=== PATIENT | male | born 1945 | race Caucasian/White ===

== ENCOUNTER → 2016-04-18 | Outpatient (CLI) | payer OTHER ==
[~2016-04-18] VITALS: Ht 177.8 cm; Wt 136.1 kg
[~2016-04-18] MED LIST: ADULT LOW DOSE81 MG PO; ALEVE220 MG PO; ALTACE10 M1 PO; ALTACE10 MG PO; CARDURA4 MG PO; CENTRUM SILVER1 EAC1 PO; CENTRUM SILVER1 EAC2 PO; CIPROFLOXACIN500 M1 PO; CYCLOBENZAPRINE10 MG PO; DILTIAZEM 24HR240 M2 PO; ENDUR-ACIN500 MG PO; FISH OIL 1,001000 M2 PO; FLOMAX PO; GLIPIZIDE ER10 MG PO; GLUCOSAMINE SU500 MG PO; HUMALOG100 UNIT/1 SUBQ; HUMALOG100 UNIT/2 SUBQ; HYDROCHLOROTH12.5 M1 PO; HYDROCODONE-AP1 EAC6 PO; HYDROCODONE-APA1 TA1 PO; IRON325 PO; LANTUS SOL100 UNIT/1 SUBQ; LIPITOR 20 MG T20 M1 PO; METFORMIN 500500 MG PO; METFORMIN HCL500 MG PO; MOBIC15 MG PO; NAPROSYN375 MG PO; NORCO 5-325 TA1 EACH PO; POTASSIUM CITR15 MEQ PO; POTASSIUM CITRA5 ME1 PO; PROTONIX40 M2 PO; SIMVASTATIN40 MG PO; [UNRECOGNIZED DRUG - CODE] GT; [UNRECOGNIZED DRUG - OTHER] PO
--- NOTE | ~2016-04-18 | HPC ---
[facility] [place] [address] PAIN MANAGEMENT CONSULTATION Name: CHAI HUDSON Room #: REG [facility] Breann#: [id number] Admission: 04/18/16 Attend Phys: Priyank Mathew DO Discharge: Date of : 43 Report #: [id number] THIS REPORT FOR: //name// CC: Beka Mathew HISTORY OF PRESENT ILLNESS: The patient is a 70-year-old gentleman last seen in the pain clinic 02/28/2016, patient was given epidural injection at that time at L3-L4. He returns to the pain clinic today noting the injections have afforded good relief of radicular pain. He does have ongoing pain primarily in the low back, right side. He states he has had poor balance since he has had total knee arthroplasty sometime ago. He notes the sciatic symptoms have been significantly abated following his epidural injections. He had excellent relief about 4-5 weeks, the pain has begun to recur again; however, presently pain is more in the right SI area at present. He does have a followup appointment at some point in the future to see Dr. Pickering regarding consideration for a surgical decompression. Again, MRI from 07/30/2015 notes spinal stenosis at L3-L4. He had left greater than right neural foraminal narrowing and presenting more with right radicular symptoms. PHYSICAL EXAMINATION: GENERAL: Shows a 70-year-old gentleman, moderately overweight with a BMI of 43 kilograms per meter squared. VITAL SIGNS: Blood pressure is 146/77, pulse 88, respirations 14. Rises from chair using armrest, moderately antalgic gait, though tandem, he is short of breath with any activity. He has a fairly large pannus, again BMI is 43 kilograms per meter squared. MUSCULOSKELETAL: Right patellar reflex is absent, left is 1/4. Achilles reflexes are diminished. Positive straight leg raise on the right. Grossly tender over the right SI with positive Sandra test on the right. ASSESSMENT: Symptomatic sacroiliac joint dysfunction by clinical exam, history of lumbar radiculopathy, symptoms improved following epidural injections. RECOMMENDATION: We will seek authorization for right SI joint injection under fluoroscopy, refer patient record of therapy. <ELECTRONICALLY SIGNED> By: Priyank Mathew DO 04/21/16 1228 1556 0408 Priyank Mathew DO /nt
[2016-04-18 09:40] VITALS: BP 146/77
== END | disposition home or self-care (01) ==
LOC: PAIN 06:53
DX: M53.3 Sacrococcygeal disorders, not elsewhere classified (principal); M54.16 Radiculopathy, lumbar region

== ENCOUNTER → 2016-07-31 | Outpatient (CLI) | payer OTHER | LOC: RAD 10:31 | DX: M47.896 Other spondylosis, lumbar region (principal); M25.551 Pain in right hip ==

== ENCOUNTER → 2016-09-04 | Outpatient (CLI) | payer OTHER | LOC: MRI 09:06 | DX: M47.896 Other spondylosis, lumbar region (principal); M16.11 Unilateral primary osteoarthritis, right hip; M47.816 Spondylosis without myelopathy or radiculopathy, lumbar region; M48.06 Spinal stenosis, lumbar region; K57.30 Diverticulosis of large intestine without perforation or abscess without bleeding ==

== ENCOUNTER → 2016-11-14 | Outpatient (CLI) | payer OTHER ==
[~2016-11-14] VITALS: Ht 177.8 cm; Wt 132.5 kg
--- NOTE | ~2016-11-14 | HPC ---
[facility] [place] [address] PAIN MANAGEMENT CONSULTATION Name: CHAI HUDSON Room #: REG [facility] Crain#: [id number] Admission: 11/14/16 Attend Phys: Priyank Mathew, Discharge: Date of : 43 Report #: [id number] THIS REPORT FOR: //name// CC: Beka Mathew The patient is a pleasant 71-year-old gentleman who I last saw back in April with ongoing lumbar radiculopathy. The patient had had epidural injections with dwindling efficacy, was seen as a new consult in August 2015, epidural injection at that time (August, November and February 2016 had afforded good relief). Unfortunately, symptoms continued to be problematic and he ultimately proceeded to have back surgery with Dr. Jabari Pickering, had L4-L5 mini laminectomy and facetectomy on 06/08/2016. He returns to pain clinic today for prolonged visit, seen from 13:05 to 13:30, greater than 50% of this 25-minute visit was spent counseling the patient, reviewing therapeutic options and discussing intervention. The patient was actually referred back to our clinic from Dr. Pickering's office for consideration for epidural injection for ongoing right hip and leg pain. The patient had been referred to Dr. Walter Nuñez at [facility] who did not feel pain was coming from the right hip. The patient was self-rating the pain a 9-10 on a VAS in the right buttock, posterior thigh and somewhat into the groin. Pain noted to be exacerbated with standing, walking and bending. Gets some relief with rest, medication and ice. PHYSICAL EXAMINATION: Shows 71-year-old gentleman, moderately obese with a BMI of 41.9 kg/m2. Vital signs show modest hypertension of 181/89, pulse 87, respirations 16. Rises from chair using armrest, antalgic gait favoring the right leg. Lumbar flexion is modestly limited. Well-healed midline scar compatible with surgical history for May, lower extremity strength is slightly diminished on the left to hip flexion and lower extremity extension. Modestly positive straight leg raise on the right. Some point tenderness over the right low back, though no discrete trigger points are noted. Sandra test is equivocal. Gaenslen's is negative. There are no recent diagnostic studies available subsequent to the 06/08/2016 laminectomy. Again, pain is in her right L5 pattern. Does have subjective weakness and paresthesia in this distribution. Exhibits neurogenic claudication with ambulation greater than 5 minutes. ASSESSMENT: Symptomatic lumbar radiculopathy, status post decompressive laminectomy, component of lumbar spondylosis and sacroiliac joint dysfunction, the latter aspect is relatively quiescent at present. RECOMMENDATIONS: Agree with neurosurgeon's request. The patient may benefit from epidural injection under fluoroscopy. We will seek authorization for right and midline L5-S1 epidural injection. If this does not afford adequate relief, [address] [address] PAIN MANAGEMENT CONSULTATION Name: CHAI HUDSON Room #: REG DEBBIE Crain#: [id number] Admission: 11/14/16 Attend Phys: Priyank Mathew DO Discharge: Date of : 43 Report #: [id number] consider transforaminal epidural injection at L4-L5 and L5-S1. Thanks for allowing me to participate in the patient's care. We will seek authorization for lumbar epidural injection right and midline at L5-S1 for right L5 radicular pain pattern. <ELECTRONICALLY SIGNED> By: Priyank Mathew DO 11/17/16 1253 1333 2210 Priyank Mathew DO /nt
[2016-11-14 12:40] VITALS: BP 181/89
== END ==
LOC: PAIN 07:06
DX: M47.26 Other spondylosis with radiculopathy, lumbar region (principal); M53.3 Sacrococcygeal disorders, not elsewhere classified

== ENCOUNTER → 2016-11-27 | Outpatient (CLI) | payer OTHER ==
[~2016-11-27] VITALS: Ht 177.8 cm; Wt 135.1 kg
[~2016-11-27] MED LIST changes: +KEFLEX500 MG PO
--- NOTE | ~2016-11-27 | HPC ---
[address] [address] PAIN MANAGEMENT CONSULTATION Name: CHAI HUDSON Room #: REG [facility] Breann#: [id number] Admission: 11/27/16 Attend Phys: Priyank Mathew DO Discharge: Date of : 43 Report #: [id number] THIS REPORT FOR: //name// CC: Beka Mathew DATE OF SERVICE: 11/27/2016 The patient is a 71-year-old gentleman, prior seen in the pain clinic 11/14/2016 for symptomatic lumbar radiculopathy. He had had a decompressive (minimally invasive) laminectomy with facetectomy at L4-5 on 06/08/2016. Some ongoing radicular pain. We sought authorization for lumbar epidural injection today, right of midline L5-S1. If this does not afford adequate relief, we will request authorization for 2-level transforaminal epidural injection, right L4-5 and right L5-S1. ASSESSMENT: Symptomatic lumbar radiculopathy status post decompressive laminectomy. PROCEDURE: Lumbar epidural injection under fluoroscopy. PROCEDURE NOTE: After both written and informed consent to include risk of spinal cord damage, increased pain, weakness and dural puncture, the patient was taken to the fluoroscopy suite, placed in the prone position. After sterile prep and drape, a skin wheal with lidocaine was raised. A 22-gauge epidural Tuohy needle was inserted in the midline at L5-S1 with good loss to resistance. Negative aspiration for cerebrospinal fluid or blood was noted. Then 1 mL of Omnipaque under biplanar fluoroscopy showed good spread within the epidural space. This was followed with 80 mg of triamcinolone plus 1 mL of 1.5% preservative-free Xylocaine, 0.5 mL Xylocaine was then injected to flush the needle; it was removed. The patient was monitored for an appropriate period of time and discharged in good and stable condition. <ELECTRONICALLY SIGNED> By: Priyank Mathew DO 11/27/16 1326 1214 1250 Priyank Mathew DO /nt
[2016-11-27 09:36] VITALS: BP 164/92
== END | disposition home or self-care (01) ==
LOC: PAIN 06:59
DX: M54.16 Radiculopathy, lumbar region (principal); Z79.82 Long term (current) use of aspirin; Z79.899 Other long term (current) drug therapy; Z79.4 Long term (current) use of insulin; Z98.890 Other specified postprocedural states

== ENCOUNTER → 2017-02-20 | Outpatient (CLI) | payer OTHER ==
[~2017-02-20] VITALS: Ht 177.8 cm; Wt 128.4 kg
[~2017-02-20] MED LIST changes: +CEFUROXIME500 MG PO
--- NOTE | ~2017-02-20 | HPC ---
[facility] [place] [address] PAIN MANAGEMENT CONSULTATION Name: CHAI HUDSON Room #: REG [facility] Crain#: [id number] Admission: 02/20/17 Attend Phys: Priyank Mathew DO Discharge: Date of : 43 Report #: [id number] THIS REPORT FOR: //name// CC: Beka Mathew The patient is a 71-year-old gentleman being treated for lumbar radiculopathy status post decompressive laminectomy, requiring complex medication management and SI mediated pain. Last visit 02/05/2017, we sought authorization for epidural injection at L5-S1 and talked about a spinal cord stimulator. The patient presents to pain clinic today for said injection. Pain continues in his low back, right buttock and leg. Prior injection 11/27/2016, afforded excellent relief, though the patient did have an elevation in blood sugar to 343. We will lower the injectate to 60 mg triamcinolone. Again, we answered all questions about spinal cord stimulator. The patient typically gets several month's relief following the epidural injection. I suggest he follow up with Dr. Pickering as had been requested. We will have him talk to a psychologist regarding evaluation as required by most third green party payers for spinal cord stimulator. If and when symptoms start to recur, we will have the patient call up at that time for consideration for spinal cord stimulator trial scheduling. Again, we want to wait until pain starts to recur obviously to get a good effective of trial. ASSESSMENT: Symptomatic lumbar radiculopathy status post decompressive laminectomy. PROCEDURE: Lumbar epidural injection under fluoroscopy. PROCEDURE NOTE: After both written and informed consent to include risk of spinal cord damage, increased pain, weakness and dural puncture, the patient was taken to the fluoroscopy suite, placed in the prone position. After sterile prep and drape, a skin wheal with lidocaine was raised. A 22-gauge epidural Tuohy needle was inserted in the midline at L5-S1 with good loss to resistance. Negative aspiration for cerebrospinal fluid or blood was noted. Then 1 mL of Omnipaque under biplanar fluoroscopy showed good spread within the epidural space. This was followed with 60 mg of triamcinolone plus 1 mL of 1.5% preservative-free Xylocaine, 0.5 mL Xylocaine was then injected to flush the needle; it was removed. The patient was monitored for an appropriate period of time and discharged in good and stable condition. <ELECTRONICALLY SIGNED> By: Priyank Mathew DO 02/23/17 0759 1011 1744 Priyank Mathew DO /nt
[2017-02-20 09:20] VITALS: BP 135/75
== END | disposition home or self-care (01) ==
LOC: PAIN 06:42
DX: M54.16 Radiculopathy, lumbar region (principal)

== ENCOUNTER → 2017-05-18 | Outpatient (CLI) | payer OTHER ==
[~2017-05-18] VITALS: Ht 177.8 cm; Wt 124.7 kg
--- NOTE | ~2017-05-18 | HPC ---
[facility] [place] [address] PAIN MANAGEMENT CONSULTATION Name: CHAI HUDSON [id number] Admission: 05/18/17 Attend Phys: Priyank Mathew DO Discharge: Date of : 43 Report #: [id number] THIS REPORT FOR: //name// CC: Beka Mathew The patient is a very pleasant 71-year-old gentleman, status post lumbar decompressive laminectomy with ongoing axial back and lumbar radicular pain, requiring complex medication management and failed conservative therapies. The patient was scheduled for spinal cord stimulator trial to help manage pain symptoms that interfere with function. The patient presents to pain clinic today for said trial. After risks and benefits were explained including risks of paralysis, infection, increased pain, the patient wished to proceed. Intravenous access was established in the left wrist. The patient was given 1 gram of Ancef, taken to the fluoroscopy suite and placed in a prone position with appropriate abdominal bolstering. Wide surgical prep and drape was accomplished. Skin wheal with Xylocaine was raised from a right paramedian approach, stab incision with a #11 blade was made. A 14-gauge epidural Tuohy needle was placed into the posterior spinous processes of T12-L1. Stylet was removed. A saline filled glass syringe was connected and with continuous plunger pressure and biplanar fluoroscopy, the needle was easily advanced into the epidural space. Negative aspiration was accomplished for cerebrospinal fluid or blood. A single octad lead (Nevro) was advanced to the top of the T7 vertebral body. AP and lateral projections showed good lead placement in the posterior aspect of the epidural space and in the midline. A second lead was placed in identical fashion starting approximately 1 cm inferior and again right paramedian to the initial lead. Second lead was advanced to the top of the T9 vertebral body. Using continuous fluoroscopy, the stylets and needles were removed. The leads remained in place. Leads were then secured using mastic and Steri-Strips. Wide bolster dressing was applied. The patient was allowed to ambulate to the exam room. We reviewed the stimulation patterns. The patient has contact information for the Nevro device rep. He has contact information for the pain clinic physician disease control inspector should he have any concerns with increasing pain, weakness, fever, chills, drainage, etc. We will plan on seeing the patient in 7 days for lead evaluation. [address] [address] PAIN MANAGEMENT CONSULTATION Name: CHAI HUDSON Room #: REG [facility] Breann#: [id number] Admission: 05/18/17 Attend Phys: Priyank Mathew DO Discharge: Date of : 43 Report #: [id number] Assuming a positive trial, we will refer the patient back to Dr. Jabari Pickering for a permanent lead implantation. <ELECTRONICALLY SIGNED> By: Priyank Mathew DO 05/21/17 1010 0811 0836 Priyank Mathew DO /manuel
[2017-05-18 07:24] VITALS: BP 144/83
== END ==
LOC: PAIN 05-11 09:23
DX: M54.16 Radiculopathy, lumbar region (principal); M96.1 Postlaminectomy syndrome, not elsewhere classified; Z79.899 Other long term (current) drug therapy

== ENCOUNTER → 2017-05-25 | Outpatient (CLI) | payer OTHER ==
[~2017-05-25] VITALS: Ht 177.8 cm; Wt 126.1 kg
--- NOTE | ~2017-05-25 | HPC ---
[facility] [address] [place] [address] PAIN MANAGEMENT CONSULTATION Name: CHAI HUDSON Room #: REG Se[facility] Pascual.#: [id number] Admission: 05/25/17 Attend Phys: Priyank Mathew DO Discharge: Date of : 43 Report #: [id number] THIS REPORT FOR: //name// CC: Beka Mathew DATE OF SERVICE: 05/25/2017 The patient is a very pleasant 71-year-old gentleman being treated for lumbar radiculopathy status post decompressive laminectomy, axial back pain requiring complex medication management, failing conservative therapy. We did a spinal cord stimulator trial on 05/18/2017. The patient returns to pain clinic today. He notes significant improvement of baseline function. He notes he has been able to participate in many more activities of daily living, rates his pain fairly nominal 5 on VAS, greater than 50% overall relief of pain. He is very desirous of moving forward with spinal cord stimulator implant. Today, the Nevro rep was available and we reviewed stimulatory patterns. RECOMMENDATIONS: We elected to withdrawal the lead and refer the patient back to Dr. Jabari Pickering for consideration for a spinal cord stimulator permanent implantation. Lead was removed, area was cleansed, Band-Aids applied. Area of insertion site looks good. Again, the patient has been stable with nominal medication hydrocodone 7.5/325 one tablet 3 times a day. I did renew that prescription. He takes hydrocodone on a nondaily basis. I will be happy to see the patient as needed for ongoing care. Presently, we will refer back to Dr. Jabari Pickering for consideration for permanent implantation of a Nevro high frequency spinal cord stimulator. <ELECTRONICALLY SIGNED> By: Priyank Mathew DO 05/27/17 0820 1628 1919 Priyank Mathew DO /nt
[2017-05-25 10:33] VITALS: BP 161/72
== END ==
LOC: PAIN 07:22
DX: M54.16 Radiculopathy, lumbar region (principal); M79.629 Pain in unspecified upper arm; M96.1 Postlaminectomy syndrome, not elsewhere classified; Z91.81 History of falling; Z79.899 Other long term (current) drug therapy

== ENCOUNTER → 2019-10-03 | Outpatient (CLI) | payer OTHER ==
[~2019-10-03] VITALS: Ht 177.8 cm; Wt 127.0 kg
[~2019-10-03] MED LIST changes: +HYDROCODON-ACE1 EAC8 PO; +PROSCAR 5MG TABL5 M1 PO
--- NOTE | ~2019-10-03 | HPC ---
[facility] [place] [address] PAIN MANAGEMENT CONSULTATION Name: CHAI HUDSON Room #: REG [facility].#: [id number] Admission: 10/03/19 Attend Phys: Sonu Mckeon MD Discharge: Date of : 43 Report #: [id number] THIS REPORT FOR: cc: Beka Chaudhari,Sonu Hammer MD ~ CC: Beka Mckeon DATE OF SERVICE: 10/03/2019 CHIEF COMPLAINT: Chronic low back pain with radiculopathy, status post decompressive laminectomy and failure of spinal cord stimulator therapy with complications, infection and explant. I see the patient for the first time. He is a pleasant 74-year-old gentleman who was previously a patient of Dr. Priyank Mathew who received a few epidural injections, which were helpful, but prior to leaving for [facility], Dr. Mathew suggested that he initiate a spinal cord stimulation trial followed by implant. It was successful. The pain was relieved by the degree of about 50-60% and he was pleased with the stimulator. It was placed by Dr. Pickering in 2018. 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 He has been in significant pain since that time. He enjoys activities being outside, likes to fish, likes to mcadams, has a garden, none of which he has been able to do due to the pain. He has tried therapy and exercise. He has tried nonopioid medication found that it is not very effective. He does get some relief with an occasional hydrocodone, which he has had from a perioperative period, but is fearful of becoming addicted at the age of 74. MEDICATIONS: Include finasteride, potassium, hydrochlorothiazide, fish oil, Centrum, vitamin, insulin sliding scale, Cardura, diltiazem, Altace, Lipitor, Glucophage, glucosamine, aspirin. Hydrocodone last prescribed by Dr. Chaudhari 21 tablets on 09/26/2019. He also had a prescription for [address] Collins in [place] in 2019. Otherwise, the prescription drug monitoring program shows that he does not use opioids on a regular basis. ALLERGIES: None. PAST MEDICAL HISTORY: Remarkable for bilateral knee replacements, melanoma excision low back, rotator cuff repair, insulin-dependent diabetes, hypertension, hypercholesterolemia, anemia, hepatitis B ____, sleep apnea, history of kidney stones and back issues with laminectomy followed by spinal cord stimulator, which failed, became infected and was explanted. [address] [address] PAIN MANAGEMENT CONSULTATION Name: BECCACHAI G Room #: REG [facility].Cory.#: [id number] Admission: 10/03/19 Attend Phys: Sonu Mckeon MD Discharge: Date of : 43 Report #: [id number] REVIEW OF SYSTEMS: Positive for occasional palpitations, change in appetite, gain in weight, frequent diarrhea alternating with constipation, wheezing, burning at night, nocturia, sexual difficulties. PHYSICAL EXAMINATION: Pleasant 74-year-old gentleman who is 5 feet 10 weighs 280 pounds with a BMI of 40.2. VITAL SIGNS: Blood pressure is 151/83, heart rate 95, respirations 16, O2 sat 99% on room air. He can independently move from sitting to standing position. His gait is mildly antalgic. He is not a fall risk. CHEST: Clear. CARDIAC: Rhythm is regular with no audible murmur and no irregularities. MUSCULOSKELETAL: Reveals tenderness across the lumbosacral spine. Tenderness around most of his scars in the low back from previous surgeries. He has pain with forward flexion, extension, rotation, side to side movements. Straight leg raising is mildly positive, primarily on the right, radiating all the way down into the ankle. He says that this is worst pain RECOMMENDATIONS: 1. Long discussion today about spinal cord stimulation, he is no longer a candidate, the epidural space is scarred and he cannot have a new lead placed particularly not a Nevro which is very site specific. 2. Medication management. Discussion was extensive. At 74 years of age likelihood that he would develop a true addiction is unlikely, he may become dependent upon opioids for pain relief, but they might provide reasonable safe alternative for him to take a couple of hydrocodone a day. I do not see that this is a disservice to the patient as long as there are few side effects and he manages his medicine carefully as we do in our clinic under terms of an opioid agreement. Dr. Chaudhari can write for these medicines for him or if Dr. Chaudhari is uncomfortable and wants us to do it we would be happy to provide that for him indefinitely. We did discuss the fact that he could use it on a p.r.n. basis, lowest effective dose for many patients will get by with morphine milligram equivalent doses in the range of 10-20. He is open to thinking about that. 3. Lumbar epidural injection using a transforaminal approach on the right at L5-S1 may be helpful for the right leg pain and may prevent the need for opioid or stronger pain medicine at least for a period of time. If he can get 3 months or so of pain relief and he can have one intermittently it might be nice way to manage without putting him back to surgery. Multiple questions were asked and answered. I spent about 40 minutes with him today on initial consultation. [facility] [address] [place] [address] PAIN MANAGEMENT CONSULTATION Name: BOY HUDSONY Juanita Room #: REG [facility] Pascual.#: [id number] Admission: 10/03/19 Attend Phys: Sonu Mckeon MD Discharge: Date of : 41 Report #: [id number] epidural injection, sometime in the next week since we have preauthorization from his [employer] Medicare plan. By: 1357 1432 Sonu Mckeon MD /nt
[2019-10-03 09:07] VITALS: BP 151/83
--- NOTE | 2019-10-03 09:16 | NUR ---
Pain Clinic Assessment: 1. History of Osteoarthritis: Left Lower Extremity Right Lower Extremity History of Rheumatoid Arthritis: Not Applicable 2. Height: 5 ft. 10 in. 177.8 cm. Weight: 280.0 lb. oz. 127.008 kg. Patient's BMI: 40.2 3. Vital Signs: BP: 151/83 Pulse: 95 Resp: 16 Temp: 02 Sat: 99 ECG Mon: 4. Pain Intensity: 6 5. Fall Risk: Dizziness: N Needs help standing or walking: N Fallen in the last 3 months: N Fall risk comments: 6. Patient on Blood Thinner: None 7. History of Hypertension: Y 8. Opioid Therapy greater than 6 weeks: N Opiate Contract Signed: 9. Risk Assessment Tool Provided: LOW-0 10. Functional Assessment Tool: 11. Recreational Drug Use: Never Drug Type: Tobacco Use: Never Smoker Tobacco Type: Amount or Packs/day: How Many Years: Alcohol Use: No Frequency: Quant:
== END ==
LOC: PAIN 06:57
PROVIDERS: ATTEND Anesthesiology Pain Medicine
DX: M54.5 Low back pain (principal); G89.29 Other chronic pain

== ENCOUNTER → 2019-10-06 | Outpatient (CLI) | payer OTHER ==
[~2019-10-06] VITALS: Ht 177.8 cm; Wt 127.0 kg
--- NOTE | ~2019-10-06 | HPC ---
[facility] [place] [address] [place] [address] PAIN MANAGEMENT CONSULTATION Name: CHAI HUDSON Room #: REG DEBBIE StanCory.#: [id number] Admission: 10/06/19 Attend Phys: Sonu Mckeon MD Discharge: Date of : 41 Report #: [id number] THIS REPORT FOR: cc: Beka Chaudhari James A. DO Morgan, Richard L. MD ~ CC: Beka Chu MD DATE OF SERVICE: 10/06/2019 Followup visit for low back pain with radiculopathy, status post decompressive laminectomy and failure of spinal cord stimulation therapy. The patient is here today for the epidural transforaminal approach that we discussed it is extensive consultation just 3 days ago. Potential benefits and risks of the procedure have been reviewed in some detail. He is anxious to see if we can get him some relief today. I plan to proceed with a transforaminal approach today and we discussed either L5-S1 or L4-L5. We should get a substantial spread into the epidural space, we can get through the foramen into the canal. There have been no significant changes since his last visit. He is anxious to proceed. PROCEDURE: Right L4-L5 transforaminal epidural injection. After informed consent, he was taken to the fluoroscopic suite for the procedure. He was placed in the prone position. With the benefit of the C-arm to identify the best location, I chose the L4-L5 interspace as our entry into the epidural space. The skin was anesthetized and a 22-gauge 4-1/2 inch Tuohy epidural needle was advanced in the first attempt in the epidural space with loss of resistance technique. Slight paresthesia was identified, immediately improved. There was no discomfort following the paresthesia. I injected 0.25 mL of Omnipaque and excellent spread of dye was seen into the epidural space and along the L4 nerve root. It was followed then by an additional 4 mL of 0.5% lidocaine mixed with 80 mg of triamcinolone. He tolerated the procedure well and there were no complications. Followup visit planned in the pain clinic in 4-6 weeks. If he is doing well, I told him to cancel this visit. I will see him on an as needed basis. If pain [address] [address] PAIN MANAGEMENT CONSULTATION Name: BOY HUDSONY Juanita Room #: REG [facility] Breann#: [id number] Admission: 10/06/19 Attend Phys: Sonu Mckeon MD Discharge: Date of : 41 Report #: [id number] does not improve, we can send him back to a surgeon for another consultation at his request. By: 1217 1319 Sonu Mckeon MD /nt
[2019-10-06 11:03] VITALS: BP 148/83
--- NOTE | 2019-10-06 11:15 | NUR ---
Pain Clinic Assessment: 1. History of Osteoarthritis: Left Lower Extremity Right Lower Extremity History of Rheumatoid Arthritis: Not Applicable 2. Height: 5 ft. 10 in. 177.8 cm. Weight: 280.0 lb. oz. 127.008 kg. Patient's BMI: 40.2 3. Vital Signs: BP: 148/83 Pulse: 84 Resp: 16 Temp: 02 Sat: 98 ECG Mon: 4. Pain Intensity: 6-7 5. Fall Risk: Dizziness: N Needs help standing or walking: N Fallen in the last 3 months: N Fall risk comments: 6. Patient on Blood Thinner: None 7. History of Hypertension: Y 8. Opioid Therapy greater than 6 weeks: N Opiate Contract Signed: 9. Risk Assessment Tool Provided: LOW-0 10. Functional Assessment Tool: 11. Recreational Drug Use: Never Drug Type: Tobacco Use: Never Smoker Tobacco Type: Amount or Packs/day: How Many Years: Alcohol Use: No Frequency: Quant:
== END | disposition home or self-care (01) ==
LOC: PAIN 08:09
PROVIDERS: ATTEND Anesthesiology Pain Medicine
DX: M54.16 Radiculopathy, lumbar region (principal); G89.29 Other chronic pain; Z98.890 Other specified postprocedural states; Z79.899 Other long term (current) drug therapy

== ENCOUNTER → 2020-01-05 | Outpatient (CLI) | payer OTHER ==
[~2020-01-05] VITALS: Ht 177.8 cm; Wt 129.7 kg
--- NOTE | ~2020-01-05 | HPC ---
[facility] [address] [place] [address] PAIN MANAGEMENT CONSULTATION Name: CHAI HUDSON Room #: REG [facility] Stan.#: [id number] Admission: 01/05/20 Attend Phys: Sonu Mckeon MD Discharge: Date of : 41 Report #: [id number] CC: Beka Mckeon DATE OF SERVICE: 01/05/2020 CHIEF COMPLAINT: Low back pain with radiation into the right hip. HISTORY OF PRESENT ILLNESS: The patient returns to pain clinic today in follow up for lumbar radiculopathy on the right. He had a transforaminal epidural injection performed in the pain clinic on 10/06/2019. This completely eliminated his pain for nearly 1 month. He then developed kidney stones and has been battling them for the next 6 weeks. He has had lithotripsy. He has had significant problems recovering from that. He continues to complain of fatigue and weakness. During this time when he is unable to walk as much as he was before his radiculopathy returned. He would like another right transforaminal epidural injection. PQRS: Positive for osteoarthritis of bilateral lower extremities, mostly hip. He has some arthritis in his knees as well. He is overweight with a BMI of 41.0. His pain intensity is 7/10. His blood pressure 159/88, heart rate 95, respirations 16, O2 sat 99. He is wearing a mask. He is not a fall risk. He has no blood thinners on board. He has a history of hypertension, under treatment. We do not prescribe medication, but he does take hydrocodone, prescribed by his primary care physician at small doses. Mostly this was just around the time of surgery. He is at low risk assessment score of 0. He does not use tobacco or alcohol. PHYSICAL EXAMINATION: Pleasant, overweight gentleman, moves independently from sitting to standing position and has antalgic features to his gait. VITAL SIGNS: As noted above. Straight leg raising is present on the right, reproducing the pain into the right hip, so effectively treated with an L4-L5 transforaminal epidural injection. He denies any weakness. IMPRESSION: Lumbar radiculopathy. Pain is unilateral and should be responsive to transforaminal epidural injection on the right at L4-L5. RECOMMENDATION: We will schedule him back once we have preauthorization approval. It is very appropriate to go forward with this. He is not a good surgical candidate. He does not want to take pain medication. I plan to see him next week. By: 1721 1813 Sonu Mckeon MD /nt
[2020-01-05 14:00] VITALS: BP 159/88
--- NOTE | 2020-01-05 14:04 | NUR ---
Pain Clinic Assessment: 1. History of Osteoarthritis: Left Lower Extremity Right Lower Extremity History of Rheumatoid Arthritis: Not Applicable 2. Height: 5 ft. 10 in. 177.8 cm. Weight: 286.0 lb. oz. 129.729 kg. Patient's BMI: 41.0 3. Vital Signs: BP: 159/88 Pulse: 95 Resp: 16 Temp: 02 Sat: 99 ECG Mon: 4. Pain Intensity: 7 5. Fall Risk: Dizziness: N Needs help standing or walking: N Fallen in the last 3 months: N Fall risk comments: 6. Patient on Blood Thinner: None 7. History of Hypertension: Y 8. Opioid Therapy greater than 6 weeks: N Opiate Contract Signed: 9. Risk Assessment Tool Provided: LOW-0 10. Functional Assessment Tool: 11. Recreational Drug Use: Never Drug Type: Tobacco Use: Never Smoker Tobacco Type: Amount or Packs/day: How Many Years: Alcohol Use: No Frequency: Quant:
== END ==
LOC: PAIN 06:45
PROVIDERS: ATTEND Anesthesiology Pain Medicine
DX: M54.16 Radiculopathy, lumbar region (principal); Z79.891 Long term (current) use of opiate analgesic

== ENCOUNTER → 2020-01-09 | Outpatient (CLI) | payer OTHER ==
[~2020-01-09] VITALS: Ht 182.9 cm; Wt 129.7 kg
--- NOTE | ~2020-01-09 | HPC ---
[facility] [address] [address] [place] [address] PAIN MANAGEMENT CONSULTATION Name: CHAI HUDSON Room #: REG DEBBIE StanCory.#: [id number] Admission: 01/09/20 Attend Phys: Sonu Mckeon MD Discharge: Date of : 41 Report #: [id number] CC: Beka Mckeon Followup visit for a transforaminal epidural injection. The patient returns to pain clinic today with recurrent pain. Transforaminal epidural injections at L4-5 had been quite helpful, giving him months of pain relief. He is trying to avoid surgery. He has had a spinal cord stimulator that failed and has been replaced. He has other comorbidities that make surgery less desirable, so we are hopeful that we can continue to provide good pain relief with these intermittent injections. He has had no complications or side effects from the injections. PHYSICAL EXAMINATION: VITAL SIGNS: His blood pressure is 159/88, heart rate 95, respirations 16, O2 sat 99, BMI of 41. Pain intensity 7. CHEST: Clear. CARDIAC: Rhythm is regular. NEUROLOGIC: His gait is antalgic. Positive straight leg raising is on the right. He is morbidly obese. He has a range of motion limitations, particularly with back extension. PQRS REVIEW: Continues with a fall risk, no blood thinners. History of hypertension, under treatment. No opioids. Risk assessment score of 0 and a functional assessment score 29, which is fairly good. He denies feelings of tobacco and alcohol. Osteoarthritis is noted in both lower extremities, knees and hips. IMPRESSION: 1. Chronic back pain with radiculopathy. 2. Failure of spinal cord stimulation therapy. PROCEDURE: Epidural injection under fluoroscopic guidance. Transforaminal L4-L5. DESCRIPTION OF PROCEDURE: After informed consent, he was taken to the fluoroscopic suite, placed prone, skin prepped with ChloraPrep. Skin anesthetized over the L4-L5 interspace. Using triplanar fluoroscopic views, I advanced needle into the epidural space. Good loss of resistance was obtained, suggesting epidural space and dye confirmed. It was then followed by 3 mL of 0.5% lidocaine mixed with 80 mg triamcinolone. He tolerated the procedure well and was observed for a short time and discharged. Follow up as needed for potential injections in the future. No other studies or recommendations. I did spend 5 minutes with him today, demonstrated some stretching exercises that he can do in a chair, which I think will be helpful. We also talked about the importance of walking and he is very motivated to try and keep walking and being on his feet as much as possible and understands the importance of keeping his weight down and controlling his other comorbidities. By: 1016 1147 Sonu Mckeon MD /nt
[2020-01-09 08:59] VITALS: BP 152/86
--- NOTE | 2020-01-09 09:08 | NUR ---
Pain Clinic Assessment: 1. History of Osteoarthritis: Left Lower Extremity Right Lower Extremity History of Rheumatoid Arthritis: Not Applicable 2. Height: 6 ft. 0 in. 182.9 cm. Weight: 286.0 lb. oz. 129.729 kg. Patient's BMI: 38.8 3. Vital Signs: BP: 152/86 Pulse: 93 Resp: 16 Temp: 02 Sat: 100 ECG Mon: 4. Pain Intensity: 4-5 5. Fall Risk: Dizziness: N Needs help standing or walking: N Fallen in the last 3 months: N Fall risk comments: 6. Patient on Blood Thinner: None 7. History of Hypertension: Y 8. Opioid Therapy greater than 6 weeks: N Opiate Contract Signed: 9. Risk Assessment Tool Provided: LOW-0 10. Functional Assessment Tool: 11. Recreational Drug Use: Never Drug Type: Tobacco Use: Never Smoker Tobacco Type: Amount or Packs/day: How Many Years: Alcohol Use: No Frequency: Quant:
== END | disposition home or self-care (01) ==
LOC: PAIN 07:06
PROVIDERS: ATTEND Anesthesiology Pain Medicine
DX: M54.16 Radiculopathy, lumbar region (principal); G89.29 Other chronic pain; I10 Essential (primary) hypertension; M19.90 Unspecified osteoarthritis, unspecified site; Z98.890 Other specified postprocedural states; Z79.899 Other long term (current) drug therapy

== ENCOUNTER → 2020-01-18 | Outpatient (CLI) | payer OTHER | LOC: SJCVC 09:49 | PROVIDERS: ATTEND Internal Medicine | DX: R94.31 Abnormal electrocardiogram [ECG] [EKG] (principal); I45.10 Unspecified right bundle-branch block; I10 Essential (primary) hypertension; E78.5 Hyperlipidemia, unspecified; G47.33 Obstructive sleep apnea (adult) (pediatric); E11.9 Type 2 diabetes mellitus without complications; Z79.899 Other long term (current) drug therapy ==

== ENCOUNTER → 2020-02-22 | Outpatient (CLI) | payer OTHER | LOC: SJCVCIMAG 08:30 | PROVIDERS: ATTEND Internal Medicine | DX: I35.1 Nonrheumatic aortic (valve) insufficiency (principal); I11.9 Hypertensive heart disease without heart failure; I45.10 Unspecified right bundle-branch block; R00.0 Tachycardia, unspecified; G47.33 Obstructive sleep apnea (adult) (pediatric); E11.9 Type 2 diabetes mellitus without complications; Z79.899 Other long term (current) drug therapy ==

== ENCOUNTER → 2020-03-30 | Outpatient (CLI) | payer OTHER | LOC: SJCVC 10:39 | PROVIDERS: ATTEND Internal Medicine | DX: I35.0 Nonrheumatic aortic (valve) stenosis (principal); I10 Essential (primary) hypertension; E78.5 Hyperlipidemia, unspecified; E11.8 Type 2 diabetes mellitus with unspecified complications; G47.33 Obstructive sleep apnea (adult) (pediatric); Z79.82 Long term (current) use of aspirin; Z79.84 Long term (current) use of oral hypoglycemic drugs; Z79.899 Other long term (current) drug therapy ==

== ENCOUNTER 2020-06-15 16:07 | Inpatient (IN) | payer OTHER ==
[~2020-06-15] VITALS: Ht 160 cm; Wt 81.2 kg
[2020-06-15 16:10] VITALS: BP 152/71
[2020-06-15 17:30] VITALS: BP 152/71
--- NOTE | 2020-06-15 19:26 | NUR ---
PT CARE ASSUMED AT 1610. ASSESSMENTS CHARTED. MEDICATIONS CHARTED. LAC IV. NORMAL SINUS RHYTHM BBB. UP AD DIVINA.
[2020-06-15 20:30] VITALS: BP 143/79
[2020-06-15 21:10] LABS: TROPONIN-I <0.06 ng/mL (<0.06)
[2020-06-15 21:12] LABS: CHOLESTEROL 131 mg/dL (<200); HDL CHOLESTEROL 35 mg/dL (>40); LDL CHOLESTEROL 60 mg/dL (<100); TC:HDL 3.7 Ratio (Not establshd); TRIGLYCERIDE 182 mg/dL (<150); VLDL 36 mg/dL (<40)
[2020-06-15 21:14] LABS: SERUM ASSESSMENT Clear
[2020-06-16 00:56] VITALS: BP 146/74
[2020-06-16 04:31] VITALS: BP 130/70
[2020-06-16 05:00] LABS: ANION GAP 10 mmol/L (7-16); BUN 20 mg/dL (7-18); CALCIUM 9.2 mg/dL (8.5-10.1); CHLORIDE 104 mmol/L (98-107); CO2 29 mmol/L (21-32); CREATININE 1.1 mg/dL (0.7-1.3); GLUCOSE 109 mg/dL (74-106); MAGNESIUM 1.5 mg/dL (1.8-2.4); POTASSIUM 3.7 mmol/L (3.5-5.1); SODIUM 143 mmol/L (136-145); TROPONIN-I <0.06 ng/mL (<0.06)
[2020-06-16 05:05] LABS: HEMATOCRIT 36.2 % (42.0-52.0); HEMOGLOBIN 11.9 gm/dL (14.0-18.0); MCH 28.8 pg (26.0-34.0); MCHC 32.8 g/dL (28.0-37.0); RBC 4.11 mil/uL (4.50-6.00); RDW 15.2 % (10.5-14.5); WBC 9.5 thou/uL (4.0-11.0)
[2020-06-16 07:50] VITALS: BP 159/82
[2020-06-16] MEDS ORDERED: MAG-OXIDE400 MG PO (10:22)
[2020-06-16] MEDS ORDERED: SYNTHROID88 MC1 PO (10:22)
[2020-06-16 11:01] VITALS: BP 159/83
[2020-06-16 11:25] VITALS: BP 153/75
--- NOTE | 2020-06-16 12:08 | NUR ---
PT DISCHARGED AT 1135, ALERT AND ORIENTED VS WNL, DISCHARGE INSRTUCTION READ TO AND PT. NO QUESTIONS OR CONCERNS AT THIS TIME. THIS NURSE WHEELED PT OFF UNIT WITH ALL BELONGINGS TO PERSONAL VEHICLE.
[2020-06-17 02:05] LABS: GLYCOHEMOGLOBIN (HGB A1C) 6.9 % (4.8-5.6)
--- NOTE | 2020-06-17 11:27 | EKG ---
[address] [address] ELECTROCARDIOGRAM REPORT Name: BECCACHAI Room #: 208-[facility].#: [id number] Admission: 06/15/20 Attend Phys: Antonio Doherty MD Discharge: 06/16/20 Date of : 41 Report #: [id number] [facility] Test Date: 2020-06-16 Test Time: 07:39:09 Pat Name: CHAI HUDSON Department: Room: 208 P Gender: M Caustic Loader: LONNY : 1945 Requested By: Bryan Zimmer Order Number: [id number] MD: Bryan Zimmer Measurements Intervals [place] Rate: 85 P: 47 HI: 241 QRS: -74 QRSD: 147 T: 55 QT: 468 QTc: 557 Interpretive Statements Sinus rhythm Prolonged HI interval Right bundle branch block Inferior infarct, old Compared to ECG 09/01/2014 10:38:30 First degree AV block now present Myocardial infarct finding now present Electronically Signed On 06-17-2020 11:27:15 CDT by Bryan Zimmer [email or web address] <ELECTRONICALLY SIGNED> By: Bryan Zimmer MD, [facility] 06/17/20 1127 0739 0739 Bryan Zimmer MD, [facility] /EPI
[2020-06-26] MEDS ORDERED: OMEGA-3 FISH1200 MG PO (07:33)
[2020-06-26] MEDS ORDERED: APPLE CIDER VI300 MG PO (07:34)
[2020-06-26] MEDS ORDERED: D3-501250 MCG PO (07:35)
[2020-06-26] MEDS ORDERED: CRANBERRY500 M3 PO (07:36)
== END 2020-06-16 11:44 | disposition home or self-care (01) | DRG 313 ==
LOC: 2N 16:07
PROVIDERS: ADMIT Internal Medicine; ATTEND Hospitalist
DX: R07.89 Other chest pain (principal); N20.0 Calculus of kidney; E78.5 Hyperlipidemia, unspecified; I10 Essential (primary) hypertension; E11.9 Type 2 diabetes mellitus without complications; Z96.653 Presence of artificial knee joint, bilateral; E78.00 Pure hypercholesterolemia, unspecified; E03.9 Hypothyroidism, unspecified; E83.42 Hypomagnesemia; D64.9 Anemia, unspecified; R79.89 Other specified abnormal findings of blood chemistry; G47.33 Obstructive sleep apnea (adult) (pediatric); Z90.49 Acquired absence of other specified parts of digestive tract; Z79.4 Long term (current) use of insulin; Z87.442 Personal history of urinary calculi; Z86.19 Personal history of other infectious and parasitic diseases; Z79.82 Long term (current) use of aspirin; Z79.899 Other long term (current) drug therapy
CPT/HCPCS: 10081

== ENCOUNTER → 2020-06-22 | Outpatient (CLI) | payer OTHER ==
[~2020-06-22] MED LIST changes: +APPLE CIDER VI300 MG PO; +CRANBERRY500 M3 PO; +D3-501250 MCG PO; +MAG-OXIDE400 MG PO; +OMEGA-3 FISH1200 MG PO; +SYNTHROID88 MC1 PO
== END ==
LOC: SJCVC 12:42
PROVIDERS: ATTEND Internal Medicine
DX: R94.31 Abnormal electrocardiogram [ECG] [EKG] (principal); I35.0 Nonrheumatic aortic (valve) stenosis; R00.1 Bradycardia, unspecified; I45.10 Unspecified right bundle-branch block; I10 Essential (primary) hypertension; E78.5 Hyperlipidemia, unspecified; E11.8 Type 2 diabetes mellitus with unspecified complications; G47.33 Obstructive sleep apnea (adult) (pediatric); Z79.82 Long term (current) use of aspirin; Z79.899 Other long term (current) drug therapy

== ENCOUNTER → 2020-06-22 | Outpatient (CLI) | payer OTHER | LOC: LAB 14:02 | PROVIDERS: ATTEND Internal Medicine | DX: Z01.812 Encounter for preprocedural laboratory examination (principal); Z20.822 Contact with and (suspected) exposure to COVID-19 ==

== ENCOUNTER → 2020-06-26 | Outpatient (CLI) | payer OTHER ==
[~2020-06-26] VITALS: Ht 177.8 cm; Wt 131.5 kg
[2020-06-26 07:23] VITALS: BP 149/71
--- NOTE | 2020-06-26 08:59 | TEE ---
[facility] [address] [address] [place] [address] TRANSESOPHAGEAL ECHOCARDIOGRAM Name: CHAI HUDSON Room #: REG [facility]#: [id number] Admission: 06/26/20 Attend Phys: Ancelmo Starkey MD, Discharge: Date of : 41 Report #: [id number] THIS REPORT FOR: cc: Beka Chaudhari James A. DO Lundgren, Craig H. MD [facility] ~ APPROVED REPORT Study performed: 06/26/2020 07:37:59 EXAM: Comprehensive 2D, Doppler, and color-flow Echocardiogram Patient Location: Out-Patient Room #: 9 Status: routine BSA: 2.44 HR: 86 bpm BP: 152/72 mmHg Rhythm: NSR Other Information Study Quality: Excellent Indications Aortic Valve Disease Echo Enhancing Agent Indication: Rule out Shunt Agent(s) / Amount(s) Used: Agitated Saline 7 cc 2D Dimensions LVOT Diam: 23.70 (18-24mm) Procedure After obtaining informed consent, patient underwent transesophageal echo in the [employer]. Type of Sedation : Conscious Sedation Sedation was administered by Sangita Garcia RN. Sedation start time: 0755 Case end Time: 08 Sedation was achieved intravenously with: Versed (4 mg) Fentanyl (100 mcg) Transesophageal probe was inserted and advanced into esophagus without difficulty by Ancelmo Starkey MD. Echo enhancement indication: R/O Septal defect. [facility] [place] [address] TRANSESOPHAGEAL ECHOCARDIOGRAM Name: CHAI HUDSON Room #: REG [facility]#: [id number] Admission: 06/26/20 Attend Phys: Ancelmo Starkey, Discharge: Date of : 41 Report #: [id number] Echo enhancement agent administered: Agitated Saline The [place] was performed without complications. Throughout the procedure, the blood pressure, pulse oximetry, cardiac rhythm, and rate were monitored. The patient tolerated the procedure without adverse effects. Recovery from conscious sedation was uneventful and vital signs were stable. Left Ventricle The left ventricle is normal size. There is normal LV segmental wall motion. Mild concentric left ventricular hypertrophy. The left ventricular systolic function is normal. The left ventricular ejection fraction is within the normal range. LVEF is 65%. Right Ventricle The right ventricle is normal size. The right ventricular systolic function is normal. Atria The left atrium size is normal. No thrombus is visualized in the left atrium or appendage. No shunting by contrast bubble injection The right atrium size is normal. Aortic Valve Aortic valve is trileaflet, moderately calcified, severely stenotic. Trace aortic regurgitation. Severe aortic stenosis. Mitral Valve The mitral valve is normal in structure. Mild mitral regurgitation. No evidence of mitral valve stenosis. Tricuspid Valve The tricuspid valve is normal in structure. There is no tricuspid valve regurgitation noted. Pulmonic Valve Pulmonic valve is not well visualized. There is no pulmonic valvular regurgitation. Great Vessels The aortic root is normal in size. Mild scattered atherosclerosis of thoracic aorta. IVC is normal in size and collapses >50% with inspiration. Pericardium There is no pericardial effusion. [facility] [address] [place] [address] TRANSESOPHAGEAL ECHOCARDIOGRAM Name: CHAI HUDSON Room #: REG Breann#: [id number] Admission: 06/26/20 Attend Phys: Ancelmo Starkey, Discharge: Date of : 41 Report #: [id number] <Conclusion> The left ventricular systolic function is normal. There is normal LV segmental wall motion. LVEF is 65%. No thrombus is visualized in the left atrium or appendage. No shunting by contrast bubble injection Aortic valve is trileaflet, moderately calcified, severely stenotic. Trace aortic regurgitation. The mitral valve is normal in structure. Mild mitral regurgitation. Mild scattered atherosclerosis of thoracic aorta. No pericardial effusion. <ELECTRONICALLY SIGNED> By: Ancelmo Starkey MD, FACC 06/26/2058 7 7 Ancelmo Starkey MD, FACC /INF
--- NOTE | 2020-06-26 09:06 | CATHLAB ---
[facility] [place] [address] [address] [place] [address] INVASIVE PROCEDURE REPORT Name: CHAI HUDSON Room #: REG DEBBIE PascualSunitha#: [id number] Admission: 06/26/20 Attend Phys: Ancelmo Starkey MD, Discharge: Date of : 41 Report #: [id number] THIS REPORT FOR: cc: Beka Chaudhari James A. DO Lundgren, Craig H. MD [facility] ~ APPROVED REPORT Study performed: 06/26/2020 07:57:46 Patient Details Patient Status: Out-Patient Room #: The patient is a 75 year-old male Event Personnel Ancelmo Starkey Milk Powder Grinder, Ric Rivera RTR Monitor, Sharmin Gibson RTR, Jose Shook Jessica RN intervention specialist Performed Art Access - R femoral artery* Coronary Angiography Only [id number] CORANG Supravalvular Aortography Injection [id number] ISVA Indication Chest pain Procedure Narrative The patient was brought electively to the Cardiac Catheterization Laboratory and was prepped and draped in a sterile manner. The Right Groin^ was infiltrated with 1% Lidocaine subcutaneous anesthesia. A PINNACLE 6FR Sheath #[id number] sheath was inserted into the RFA^. Coronary angiography was performed using coronary diagnostic catheters. The right coronary system was accessed and visualized with a JR4 catheter. The left coronary system was accessed and visualized with a JL4 catheter. An aortogram of the ascending aorta was performed. Closure device was deployed with a 6 Fr MYNXGRIP 6/7F #[id number]. The patient tolerated the procedure well and there were no complications associated with the procedure. There was no hematoma. Intraoperative Conscious Sedation There was no sedation given for this procedure. [facility] [place] [address] INVASIVE PROCEDURE REPORT Name: BECCACHAI Room #: [facility]#: [id number] Admission: 06/26/20 Attend Phys: Ancelmo Starkey, Discharge: Date of : 41 Report #: [id number] Fluoro Time: 2.30 minutes Dose: DAP 98108.20 cGycm2 1281 mGy Contrast Type and Amount: Omnipaque 125 ml Coronary Angiography The patient's coronary anatomy is co- dominant. Diagnostic Cath Left Main Normal left main LAD Normal left anterior descending Diagonal 1 Small first diagonal branch, angiographically normal Circumflex Large codominant circumflex OM1 Large OM1, bifurcating, angiographically normal L PDA Distally arising posterior descending branch, angiographically normal Right Coronary Codominant right coronary, angiographically normal R PDA Normal posterior descending. RPLV Normal posterior lateral branch Left Ventriculography Left Ventriculography was not performed. The left ventricle is normal in size with normal contractility. Supravalvular aortography: Trileaflet aortic valve with mild insufficiency. Normal caliber ascending aorta, mild calcific plaquing Hemodynamics The aortic pressure is 139/70 mmHg with a mean of 61 mmHg. Conclusion 1. Trileaflet, calcified and severely stenotic aortic valve; normal ejection fraction 65% 2. Normal left main 3. Normal coronary vasculature. Codominant circulation <ELECTRONICALLY SIGNED> By: Ancelmo Starkey MD, [facility] 06/26/20905 5 5 Ancelmo Starkey MD, FACC /INF
== END | disposition home or self-care (01) ==
LOC: CATH 06:16
PROVIDERS: ATTEND Internal Medicine
DX: R07.9 Chest pain, unspecified (principal); I08.0 Rheumatic disorders of both mitral and aortic valves; I70.0 Atherosclerosis of aorta; I10 Essential (primary) hypertension; E78.00 Pure hypercholesterolemia, unspecified; E11.9 Type 2 diabetes mellitus without complications; D64.9 Anemia, unspecified; G47.30 Sleep apnea, unspecified; Z98.890 Other specified postprocedural states; Z79.899 Other long term (current) drug therapy; Z96.653 Presence of artificial knee joint, bilateral; Z85.828 Personal history of other malignant neoplasm of skin; Z90.49 Acquired absence of other specified parts of digestive tract; Z87.442 Personal history of urinary calculi; Z79.4 Long term (current) use of insulin

== ENCOUNTER → 2021-01-28 | Outpatient (CLI) | payer OTHER ==
--- NOTE | 2021-02-06 19:34 | SLE ---
[facility] [place] [place] [address] POLYSOMNOGRAPHY STUDY Name: CHAI HUDSON Room #: REG [facility]#: [id number] Admission: 01/28/21 Attend Phys: Gustavo Rudolph MD Discharge: Date of : 41 Report #: [id number] THIS REPORT FOR: cc: Beka Chaudhari James A. DO Khan, Aman U. MD ~ cc: Tristen Velasquez MD DATE OF SERVICE: 01/28/2021 DATE OF STUDY: 01/28/2021 ATTENDING PHYSICIAN: Dr. Tristen Velasquez. The patient is a 75-year-old who weighs 275 pounds with a BMI of 39.5. The patient had a previous diagnostic sleep study and was found to have severe AROLDO, at an AHI of 67 per hour. The patient returned to [place] sleep lab for CPAP titration study. During the night study, the patient spent 483 minutes in bed and slept for 436 minutes with a sleep efficiency of 90%. Sleep latency was 3.2 minutes with a REM latency of 86 minutes. Sleep architecture showed increased stage 1 and stage 2 sleep, normal slow wave and normal REM sleep. EKG monitoring revealed an average heart rate of 75 beats per minute. No sustained arrhythmias observed. No significant PLM seen. The patient was started on CPAP at a pressure of 5 cm water and titrated up to 10 cm of water. At the final pressure, the patient slept for 318 minutes including 57 minutes of supine REM sleep. The patient's AHI was reduced to 2.1 per hour and oxygen saturations remained above 88%. IMPRESSION: 1. Severe obstructive sleep apnea diagnosed by previous sleep study on 11/29/2020. The patient's AHI was 67 per hour. 2. No significant nocturnal hypoxia while on therapeutic CPAP. 3. No significant periodic limb movements. RECOMMENDATIONS: 1. CPAP at 10 cm water completely eliminated the patient's sleep apnea and should be used on a nightly basis. 2. Follow up in 4-6 weeks to assess compliance with CPAP and to document clinical improvement. 3. Weight loss is strongly advised. [facility] [address] [place] [address] POLYSOMNOGRAPHY STUDY Name: BECCACHAI GOVIND Room #: REG [facility].#: [id number] Admission: 01/28/21 Attend Phys: Gustavo Rudolph MD Discharge: Date of : 41 Report #: [id number] 4. Avoid METAL TILE SETTER depressants. 5. Cautioned regarding driving until symptoms of sleep apnea resolve with the use of CPAP. <ELECTRONICALLY SIGNED> By: Gustavo Rudolph MD 02/06/21 1934 1440 1551 Gustavo Rudolph MD /nt
== END ==
LOC: SLEEPLAB 01-07 14:09
PROVIDERS: ATTEND Internal Medicine Critical Care Medicine
DX: Z01.812 Encounter for preprocedural laboratory examination (principal); Z20.822 Contact with and (suspected) exposure to COVID-19; G47.33 Obstructive sleep apnea (adult) (pediatric)